=== PATIENT | female | born 1970 | race Two or more races ===

== ENCOUNTER 2018-06-07 13:35 | Emergency (ER) | payer SELFPAY ==
[~2018-06-07] VITALS: Ht 177.8 cm; Wt 75.0 kg
[2018-06-07 13:43] VITALS: BP 135/74
[2018-06-07] MEDS ORDERED: METHOCARBAMOL 750 MG TABLET PO ONE (15:30)
[2018-06-07] MEDS ORDERED: IBUPROFEN 200 MG TABLET PO ONE (15:30)
== END 2018-06-07 16:54 | disposition home or self-care (01) ==
LOC: ED 14:31
DX: S39.012A Strain of muscle, fascia and tendon of lower back, initial encounter (principal); L50.8 Other urticaria; X58.XXXA Exposure to other specified factors, initial encounter; Y93.89 Activity, other specified; Y92.89 Other specified places as the place of occurrence of the external cause; Y99.8 Other external cause status
CPT/HCPCS: 72110; 99284

== ENCOUNTER 2018-07-21 14:30 | Emergency (ER) | payer MEDICAID ==
[~2018-07-21] VITALS: Ht 170.2 cm; Wt 78.0 kg
[2018-07-21 15:23] LABS: ALBUMIN 4.1 g/dL (3.4-5.0); ANION GAP 8 mmol/L (5-15); CHLORIDE 108 mmol/L (98-107); CREATININE 0.76 mg/dL (0.55-1.02)
[2018-07-21 15:42] LABS: BASOPHILS # (AUTO) 0.03 x10^3/uL (0-0.1); BASOPHILS % (AUTO) 1 % (0-1); EOSINOPHILS # (AUTO) 0.14 x10^3/uL (0-0.4); EOSINOPHILS % (AUTO) 2 % (1-7); LYMPHOCYTES # (AUTO) 1.49 x10^3/uL (1-3.4); LYMPHOCYTES % (AUTO) 24 % (22-44); MD MORPH REVIEW ONLY; MEAN CORPUSCULAR HEMOGLOBIN 20.1 pg (27.0-34.8); MEAN CORPUSCULAR HGB CONC 30.8 g/dL (32.4-35.8); MEAN CORPUSCULAR VOLUME 65.2 fL (80-100); MEAN PLATELET VOLUME 8.7 fL (7.4-10.4); MONOCYTES # (AUTO) 0.46 x10^3/uL (0.2-0.8); MONOCYTES % (AUTO) 8 % (2-9); NEUTROPHILS # (AUTO) 3.98 x10^3/uL (1.8-6.8); NEUTROPHILS % (AUTO) 65 % (42-75); PLATELET COUNT 257 x10^3/uL (130-400); RED BLOOD COUNT 5.04 x10^6/uL (3.82-5.3); RED CELL DISTRIBUTION WIDTH 18.6 % (9.6-15.2)
[2018-07-21 15:51] LABS: ANISOCYTOSIS 1+
[2018-07-21 15:52] LABS: <PLATELET ESTIMATE> ADEQUATE; <PLT MORPHOLOGY> NORMAL PLT MORPH; HYPOCHROMIA 2+; MICROCYTOSIS 2+; OVALOCYTES 1+
[2018-07-21 17:14] VITALS: BP 93/57
[2018-07-21 17:52] LABS: CULTURE INDICATED? NO; MICROSCOPIC NOT IND
== END 2018-07-21 18:39 | disposition home or self-care (01) ==
LOC: ED 15:25
DX: R41.82 Altered mental status, unspecified (principal); T42.8X5A Adverse effect of antiparkinsonism drugs and other central muscle-tone depressants, initial encounter; G89.29 Other chronic pain; M54.5 Low back pain; Y92.89 Other specified places as the place of occurrence of the external cause
CPT/HCPCS: 36415; 72072; 72110; 80048; 81003; 82040; 85025; 93005; 99285